=== PATIENT | female | born 1975 | race Caucasian/White ===

== ENCOUNTER → 2020-10-12 11:11 | Outpatient (CLI) | payer OTHER, SELFPAY ==
--- NOTE | 2020-10-12 | DI.MG.S_ITS ---
BILATERAL DIGITAL SCREENING MAMMOGRAM 3D/2D WITH CAD: 10/12/2020 CLINICAL: Routine screening. Comparison is made to exam dated: 07/07/2017 [facility]. There are scattered fibroglandular elements in both breasts. Current study was also evaluated with a Computer Aided Detection (CAD) system. No significant masses, calcifications, or other findings are seen in either breast. There has been no significant interval change. IMPRESSION: NEGATIVE There is no mammographic evidence of malignancy. A 1 year screening mammogram is recommended. This exam was interpreted at Station ID: [id number]. NOTE: For mammograms, a report in lay terms will be sent to the patient. Approximately 15% of breast malignancies will not be visualized mammographically. In the management of a palpable breast mass, a negative mammogram must not discourage biopsy of a clinically suspicious lesion. Electronically Signed By: Rahul hauser/trixie:10/14/2020 16:41:47 letter sent: Normal Exam ACR BI-RADS Category 1: Negative 3341F
== END ==
PROVIDERS: PCP Internal Medicine; Referring Provider Internal Medicine; Visit Provider Internal Medicine
DX: Z12.31 Encounter for screening mammogram for malignant neoplasm of breast (principal)
CPT/HCPCS: 77063; 77067

== ENCOUNTER → 2020-11-13 09:43 | Outpatient (CLI) | payer OTHER, SELFPAY ==
--- NOTE | 2020-11-13 | DI.RAD.S_ITS ---
PROCEDURE: XR CERVICAL SPINE 2V OR 3V INDICATIONS: NECK PAIN TECHNIQUE: 3 view(s) of the cervical spine were acquired. COMPARISON: None. FINDINGS: Bones: No fractures or dislocations to the T1 level. The lateral masses of C1 appear intact on the odontoid view. No suspicious bony lesions. Soft tissues: No prevertebral soft tissue swelling. IMPRESSION: There is a [id number] degree of degenerative disc disease at C5-6 and a moderate degree at C4-5 and C6-7. No subluxation or trauma is found. Spinal and foraminal stenosis at C5-6 likely is present. Dictated by: Moo Farris M.D. on 11/13/2020 at 10:39 Approved by: Moo Farris M.D. on 11/13/2020 at 10:40
== END ==
PROVIDERS: PCP Internal Medicine; Referring Provider Internal Medicine; Visit Provider Internal Medicine
DX: M50.121 Cervical disc disorder at C4-C5 level with radiculopathy (principal)
CPT/HCPCS: 72040

== ENCOUNTER → 2023-05-08 11:20 | Outpatient (CLI) | payer OTHER, SELFPAY ==
[2023-05-08 12:24] LABS: Add Manual Diff / Slide Review NO; Basophils Absolute Auto 0 /uL (0-100); Basophils Percent Auto 0.8 % (0-2); Eosinophils Absolute Auto 100 /uL (0-450); Eosinophils Percent Auto 2.6 % (2-4); Hematocrit 39.8 % (36-46); Hemoglobin 13.4 g/dL (12.0-16.0); Lymphocytes Absolute Auto 1500 /uL (1100-4500); Lymphocytes Percent Auto 26.7 % (25-40); Mean Corpuscular HGB Conc 33.8 % (30-36); Mean Corpuscular Hemoglobin 30.7 PG (26-34); Mean Corpuscular Volume 90.9 fL (80-100); Monocytes Absolute Auto 500 /uL (0-900); Neutrophils Absolute Auto 3600 /uL (1500-7000); Neutrophils Percent Auto 61.9 % (50-75); Platelet Count 312 X10^3/uL (150-400); Red Blood Cell Count 4.37 X10^6/uL (4.0-5.2); Red Cell Distribution Width 13.9 % (11.6-14.8); White Blood Cell Count 5.8 X10^3/uL (4.5-11.0)
[2023-05-08 12:37] LABS: Hemoglobin A1C% w Est Avg Glu 5.2 % (4.0-6.0)
[2023-05-08 12:43] LABS: Alanine Aminotransferase 25 IU/L (<35); Albumin 4.3 g/dL (3.5-5.0); Albumin Globulin Ratio 1.2 (1.0-2.8); Alkaline Phosphatase 76 U/L (38-126); Aspartate Aminotransferase 24 IU/L (14-36); BUN Creatinine Ratio 19.4 (6-22); Bilirubin Total 0.5 mg/dL (0.2-1.3); Blood Urea Nitrogen 14 mg/dL (7-17); Calcium 9.4 mg/dL (8.4-10.2); Carbon Dioxide 27 mmol/L (22-32); Chloride 103 mmol/L (98-107); Cholesterol 204 mg/dL (140-199); Estimated Glomerular Filt Rate > 60 mL/min (>60); Globulin 3.5 g/dL (1.7-4.1); Glucose 90 mg/dL (70-100); HDL Cholesterol 66 mg/dL (40-60); HEMOLYSIS < 15 (0-50); LDL Cholesterol Calculated 111 mg/dL (<100); Potassium 3.9 mmol/L (3.4-5.1); Sodium 138 mmol/L (137-145); Total Protein 7.8 g/dL (6.3-8.2); Triglycerides 134 mg/dL (35-150)
== END ==
PROVIDERS: PCP Internal Medicine; Referring Provider Internal Medicine; Visit Provider Internal Medicine
DX: E66.01 Morbid (severe) obesity due to excess calories (principal); Z13.228 Encounter for screening for other metabolic disorders; Z13.220 Encounter for screening for lipoid disorders
CPT/HCPCS: 36415; 80053; 80061; 83036; 85025

== ENCOUNTER → 2023-10-04 11:21 | Outpatient (CLI) | payer OTHER, SELFPAY ==
--- NOTE | 2023-10-04 11:22 | DI.MG.S_ITS ---
BILATERAL DIGITAL SCREENING MAMMOGRAM 3D/2D WITH CAD: 10/04/2023 CLINICAL: Routine screening. Comparison is made to exams dated: 10/12/2020 mammogram and 07/07/2017 mammogram - [facility]. There are scattered areas of fibroglandular density in both breasts (category b / 25%-50% glandular tissue). Current study was also evaluated with a Computer Aided Detection (CAD) system. There is a focal asymmetry in the left breast at 10 o'clock middle depth. No other significant masses, calcifications, or other findings are seen in either breast. IMPRESSION: INCOMPLETE: NEEDS ADDITIONAL IMAGING EVALUATION The focal asymmetry in the left breast is indeterminate. Additional views with possible ultrasound are recommended. Based on the Tyrer Cuzick model (a risk assessment model) the patient's lifetime risk is 9.3% and her 10 year risk is 2.2%. According to the ACR, ACS, and NCCN guidelines, an annual breast MRI exam along with mammogram is recommended if the patient's lifetime risk is 20% or greater. This exam was interpreted at Station ID: [id number]. NOTE: For mammograms, a report in lay terms will be sent to the patient. Approximately 15% of breast malignancies will not be visualized mammographically. In the management of a palpable breast mass, a negative mammogram must not discourage biopsy of a clinically suspicious lesion. Electronically Signed By: Mariano Drummond M.D. /:10/04/2023 16:52:27 letter sent: Additional Imaging Needed ACR BI-RADS Category 0: Incomplete 3340F
[2023-10-04 13:42] LABS: TSH w/ Reflex to FT4 1.72 uIU/mL (0.47-4.68)
[2023-10-04 17:10] LABS: Hep C Virus Ab w/Reflex Quant NEGATIVE s/c (NEGATIVE)
== END ==
PROVIDERS: PCP Internal Medicine; Referring Provider Internal Medicine; Visit Provider Internal Medicine
DX: Z12.31 Encounter for screening mammogram for malignant neoplasm of breast (principal); R92.323 Mammographic fibroglandular density, bilateral breasts; Z11.59 Encounter for screening for other viral diseases; Z13.29 Encounter for screening for other suspected endocrine disorder
CPT/HCPCS: 36415; 77063; 77067; 84443; 86803

== ENCOUNTER → 2023-11-11 11:50 | Outpatient (CLI) | payer OTHER, SELFPAY ==
--- NOTE | 2023-11-11 11:51 | DI.MG.S_ITS ---
UNILATERAL LEFT DIGITAL DIAGNOSTIC MAMMOGRAM 3D/2D WITH ADDITIONAL VIEWS: 11/11/2023 CLINICAL: Additional evaluation requested from prior study. Comparison is made to exams dated: 10/04/2023 mammogram, 10/12/2020 mammogram, and 07/07/2017 mammogram - [facility]. There are scattered areas of fibroglandular density in the left breast (category b / 25%-50% glandular tissue). There is a 0.5 cm focal asymmetry in the left breast at 10 o'clock middle depth. This is seen in additional views. No other significant masses or calcifications are seen in the breast. IMPRESSION: INCOMPLETE: NEEDS ADDITIONAL IMAGING EVALUATION The 0.5 cm focal asymmetry in the left breast is indeterminate. An ultrasound is recommended. Based on the Tyrer Cuzick model (a risk assessment model) the patient's lifetime risk is 9.3% and her 10 year risk is 2.2%. According to the ACR, ACS, and NCCN guidelines, an annual breast MRI exam along with mammogram is recommended if the patient's lifetime risk is 20% or greater. This exam was interpreted at Station ID: [id number]. NOTE: For mammograms, a report in lay terms will be sent to the patient. Approximately 15% of breast malignancies will not be visualized mammographically. In the management of a palpable breast mass, a negative mammogram must not discourage biopsy of a clinically suspicious lesion. Electronically Signed By: Mariano Drummond M.D. lc/:11/11/2023 13:04:52 ACR BI-RADS Category 0: Incomplete 3340F
--- NOTE | 2023-11-11 11:51 | DI.US.S_ITS ---
LIMITED ULTRASOUND OF LEFT BREAST: 11/11/2023 CLINICAL: Patient returns today to evaluate a focal asymmetry in the left breast. Comparison is made to exams dated: 11/11/2023 mammogram, 10/04/2023 mammogram, 10/12/2020 mammogram, and 07/07/2017 mammogram - [facility]. Color flow and real-time ultrasound of the left breast upper inner quadrant were performed. Lozada scale images of the real-time examination were reviewed. There is a possible 0.5 cm x 0.2 cm x 0.3 cm complicated cyst in the left breast at 10 o'clock posterior depth 4 cm from the nipple. This correlates with mammography findings. IMPRESSION: PROBABLY BENIGN The possible 0.5 cm x 0.2 cm x 0.3 cm complicated cyst in the left breast is probably benign. A follow-up ultrasound in 6 months is recommended to demonstrate stability. This exam was interpreted at Station ID: [id number]. Electronically Signed By: Mariano Drummond M.D. lc/:11/11/2023 13:05:36 letter sent: Followup Recommended Ultrasound BI-RADS: 3 Probably benign
== END ==
PROVIDERS: PCP Internal Medicine; Referring Provider Internal Medicine; Visit Provider Internal Medicine
DX: R92.8 Other abnormal and inconclusive findings on diagnostic imaging of breast (principal); N64.89 Other specified disorders of breast; R92.322 Mammographic fibroglandular density, left breast
CPT/HCPCS: 76642; 77065; G0279

== ENCOUNTER → 2024-09-04 09:38 | Outpatient (CLI) | payer OTHER, SELFPAY ==
--- NOTE | 2024-09-04 | DI.US.S_ITS ---
LIMITED ULTRASOUND OF LEFT BREAST AND AXILLA: 09/04/2024 CLINICAL: Patient returns for a 6 month follow up of the left breast. Comparison is made to exams dated: 09/04/2024 mammogram, 11/11/2023 ultrasound, 11/11/2023 mammogram, 10/04/2023 mammogram, 10/12/2020 mammogram, and 07/07/2017 mammogram - [facility]. Color flow and real-time ultrasound of the left breast 10 o'clock, and axilla regions were performed. Lozada scale images of the real-time examination were reviewed. There is a 0.6 x 0.3 x 0.2 cm oval hypoechoic mass with circumscribed margins at 10 o'clock, 4 cm from the nipple. This may correlate with the mammographic finding. Previously it measured 0.5 cm x 0.2 cm x 0.3 cm on 11/11/2023. IMPRESSION: PROBABLY BENIGN Left breast 0.6 cm oval mass at 10 o'clock position, stable since October 2023. Finding likely represents a complicated cyst and is probably benign. Recommend follow-up mammogram and ultrasound in 12 months to demonstrate near 2 year stability. Patient will be due for bilateral mammogram at that time. Findings and recommendations were conveyed to the patient during today's evaluation. This exam was interpreted at Station ID: [id number]. Electronically Signed By: Jazmín Sánchez M.D., Ph.D. eb/:09/04/2024 11:23:31 letter sent: Followup Recommended ACR BI-RADS Category 3: Probably Benign
--- NOTE | 2024-09-04 | DI.MG.S_ITS ---
BILATERAL DIGITAL DIAGNOSTIC MAMMOGRAM 3D/2D: 09/04/2024 CLINICAL: Short term follow up, due bilateral. Comparison is made to exams dated: 11/11/2023 mammogram, 10/04/2023 mammogram, and 10/12/2020 mammogram - [facility]. There are scattered areas of fibroglandular density (category b / 25%-50% glandular tissue). There is a 0.5 cm focal asymmetry in the left breast at 10 o'clock middle depth. This is less prominent compared to prior mammogram 10/04/2023. No other significant masses, calcifications, or other findings are seen in either breast. IMPRESSION: INCOMPLETE: NEED ADDITIONAL IMAGING EVALUATION The 0.5 cm focal asymmetry in the left breast, decreased prominence since September 2023. An ultrasound is recommended for further evaluation and is scheduled to immediately follow this examination. Based on the Tyrer Cuzick model (a risk assessment model) the patient's lifetime risk is 9.3% and her 10 year risk is 2.2%. According to the ACR, ACS, and NCCN guidelines, an annual breast MRI exam along with mammogram is recommended if the patient's lifetime risk is 20% or greater. This exam was interpreted at Station ID: [id number]. NOTE: For mammograms, a report in lay terms will be sent to the patient. Approximately 15% of breast malignancies will not be visualized mammographically. In the management of a palpable breast mass, a negative mammogram must not discourage biopsy of a clinically suspicious lesion. Electronically Signed By: Jazmín Sánchez M.D., Ph.D. eb/:09/04/2024 11:18:42 letter sent: Additional Imaging Needed ACR BI-RADS Category 0: Incomplete: Need Additional Imaging Evaluation
== END ==
PROVIDERS: PCP Family Medicine; Referring Provider Internal Medicine; Visit Provider Internal Medicine
DX: R92.8 Other abnormal and inconclusive findings on diagnostic imaging of breast (principal); N63.22 Unspecified lump in the left breast, upper inner quadrant
CPT/HCPCS: 76642; 77066; G0279

== ENCOUNTER 2025-05-21 12:59 | Day surgery (SDC) | payer OTHER, SELFPAY ==
--- NOTE | 2025-05-21 | PATH_ITS ---
[facility] Accession Number: [id number] No. of containers..01 Tissue . 01 Material submitted: . colon - COLON, 30 CM POLYP . 01 Diagnosis: COLON POLYP AT 30 CM: Tubular adenoma. MRV 05/29/2025 1546 Local . 01 Electronically signed: . Torrey Gerber MD, PhD, Pathologist NPI- [id number] . 01 Gross description: . Received one formalin-filled container, labeled with the patient's name and labeled polyp colon 30 cm are two fragments of alexander, soft tissue which range in size from 0.4 x 0.4 x 0.4 cm to 0.6 x 0.6 x 0.5 cm. All fragments are totally submitted in one cassette. ([id number]) /JOYCE 05/25/2025 1904 Local . 01 Pathologist provided ICD-10: D12.6 . 01 CPT . 525416 Specimen Comment: A courtesy copy of this report has been sent to [phone] Performed at: [address] [facility] [address] [address], [place], [place] [id number] MD Luis Antonio Sorensen MD Phone: [phone]
[2025-05-21 14:18] VITALS: BP 132/87; PULSE 82; RESP 15; TEMP 36.4; O2SAT 96
[2025-05-21] MEDS: LACTATED RINGERS 1,000 ML 120 ML IV (14:22)
--- NOTE | 2025-05-21 14:44 | P.HP_ITS ---
History of Present Illness History of Present Illness Date Patient Seen: 05/21/25 Chief complaint: Screening Colonoscopy Narrative: First screening colonoscopy [facility] Medical History (Updated 12/02/24 @ 18:48 by Cecilia Brito) Wears glasses Ankle pain History of migraine headaches Urinary frequency Plantar fasciitis (03/18/15) Morbid obesity with body mass index (BMI) of 40.0 to 49.9 (03/18/15) Migraine headache (03/18/15) Dysmenorrhea (03/18/15) Allergic rhinitis (03/18/15) Chronic cough (~2010) Seasonal allergies Seizure Migraines (~2006) Headache Foot pain (~2011) Acne Chicken pox Endometriosis Heavy menstrual period Surgical History (Updated 07/18/18 @ 21:46 by Cecilia Brito) Anesthesia Status post sclerotherapy of varicose veins (~2001) Family History (Updated 12/02/24 @ 18:52 by Cecilia Brito) Father Age: 84 Cancer Heart disease Arthritis Hypertension History of heart artery stent Grandfather Cancer Grandmother Hypertension Stroke Heart disease Mother Hypertension Arthritis History of knee replacement History of hip replacement Grandmother Parkinsons Family/Other ADHD High-functioning autism spectrum disorder Social History Smoking Status: Never smoker alcohol intake: current Meds Home Medications and Allergies Home Medications ?Medication ?Instructions ?Recorded ?Confirmed ?Type sumatriptan succinate 50 mg tablet 50 mg PO .COMPLEX # 18 tabs 07/20/18 11/16/24 Rx (Imitrex) sodium,potassium,mag sulfates 17.5 See Rx Instructions PO .COMPLEX 04/27/25 Rx gram-3.13 gram-1.6 gram oral soln #354 mL (Suprep Bowel Prep Kit) Allergies Allergy/AdvReac Type Severity Reaction Status Date / Time codeine (CODEINE) Allergy Unknown Unverified 07/20/18 15:07 Exam Vital Signs (past 8 hours): - 05/21/25 14:18 Temperature 97.5 F L Pulse Rate 82 Respiratory Rate 15 Blood Pressure 132/87 Pulse Oximetry 96 Oxygen Delivery Method Room Air Oxygen Delivery Method Room Air Narrative Exam Narrative: Oropharynx free of lesions Chest clear to auscultation percussion Cardiac exam reveals no S3 or murmur Assessment & Plan Assessment & Plan narrative: For screening colonoscopy for colon cancer. Risks, benefits, alternatives have been explained. Time-Based Coding :: [TOTAL MINUTES] spent with patient and on the chart (including review of chart, obtaining history, exam, reviewing outside data, placing orders, documenting exam and treatment plan, and counseling patient) on [DATE]. [employer] Document charge(s): No
--- NOTE | 2025-05-21 14:45 | P.OP.COLON_ITS ---
Operative Date/Time/Diagnoses Date of procedure: 05/21/25 Time of procedure: 15:21 Pre-op diagnosis: See indication and findings Post-op diagnosis: same Procedure & Clinicians Study performed: Colonoscopy Same procedure(s) as scheduled: Yes Indications: For screening colonoscopy Surgeon: Kim Foster Anesthesia Type: Other Procedure Notes Procedure in detail: After informed consent was obtained the patient was placed in left lateral decubitus position. The video colonoscope was introduced the rectum slowly advanced cecum. Preparation was good. On slow withdrawal mucosa was carefully examined. The scope was removed. The patient tolerated the procedure well. Blood loss none Complications none Sedation mac Findings 1. 1-1.2 cm partially pedunculated polyp at 30 cm. This was partly removed with cold snare and due to using the 2nd pass was made with hot snare. Good hemostasis was achieved. 2. Otherwise negative colonoscopy to cecum Patient will be informed of pathology results and will most likely need follow- up colonoscopy in 5 years
[2025-05-21 15:25] VITALS: BP 91/61; PULSE 69; RESP 14; TEMP 36.3; O2SAT 97
[2025-05-21 15:30] VITALS: BP 93/62; PULSE 70; RESP 12; O2SAT 97
[2025-05-21 15:42] VITALS: BP 103/69; PULSE 70; RESP 20
[2025-05-21 15:53] VITALS: BP 140/62; PULSE 80; RESP 18; O2SAT 97
== END 2025-05-21 15:53 | disposition home or self-care (01) ==
PROVIDERS: PCP Family Medicine; Referring Provider Family Medicine; Visit Provider Internal Medicine Gastroenterology
PROC: 0DJD8ZZ Inspection of Lower Intestinal Tract, Via Natural or Artificial Opening Endoscopic (ICD-10-PCS; CPT 45378; principal; 2025-05-21 14:30)
DX: Z12.11 Encounter for screening for malignant neoplasm of colon (principal); D12.6 Benign neoplasm of colon, unspecified
CPT/HCPCS: 45385; J2704; J7120